=== PATIENT | female | born 1965 | race Hispanic/Latino ===

== ENCOUNTER 2018-02-16 21:40 | Emergency (ER) | payer MEDICAID, MEDICARE ==
[2018-02-16] MEDS ORDERED: Cephalexin 250 MG CAP ONE (22:49)
[2018-02-16] MEDS ORDERED: diphenhydrAMINE 50 MG CAP ONE ×2 (22:49→22:51)
== END 2018-02-16 23:28 | disposition home or self-care (01) ==
LOC: ERS 21:40
DX: L03.116 Cellulitis of left lower limb (principal); L29.9 Pruritus, unspecified; I10 Essential (primary) hypertension; E11.9 Type 2 diabetes mellitus without complications; E78.5 Hyperlipidemia, unspecified; F32.9 Major depressive disorder, single episode, unspecified; F41.9 Anxiety disorder, unspecified
CPT/HCPCS: 99283

== ENCOUNTER 2018-02-27 09:30 | Emergency (ER) | payer MEDICARE ==
[2018-02-27 10:27] LABS: #Basophils 0.1 thou/uL (0.0-0.2); #Eosinphils 0.6 thou/uL (0.0-0.7); #Lymphocytes 1.2 thou/uL (1.20-3.40); #Monocytes 0.4 thou/uL (0.11-0.59); #Neutrophils 4.9 thou/uL (1.40-6.50); %Eosinophils 8.1 % (0.0-10.0); %Lymphocytes 16.3 % (21.0-51.0); %Monocytes 5.4 % (0.0-10.0); %Neutrophils 69.1 % (42.0-75.0); Hemoglobin 12.6 g/dL (12.0-16.0); Mean Corpuscular HGB CONC 33.2 g/dL (32.0-36.0); Mean Corpuscular Hemoglobin 28.6 pg (27.0-31.0); Mean Corpuscular Volume 86.3 fl (81.0-99.0); Mean Platelet Volume 8.9 fL (7.4-10.4); Platelet Count 315 thou/uL (130-400); RBC Distribution Width 12.1 % (11.5-14.5); White Blood Cell (WBC) Count 7.1 thou/uL (4.8-10.8)
[2018-02-27 10:43] LABS: ALT (SGPT) 15 U/L (8-55); AST (SGOT) 19 U/L (5-34); Albumin 3.8 g/dL (3.5-5.0); Alkaline Phosphatase 92 U/L (40-150); Anion Gap 14 mmol/L (10-20); BUN (Urea Nitrogen) 15 mg/dL (9.8-20.1); Bilirubin, Total 0.4 mg/dL (0.2-1.2); Calc. Creatinine Clearance 0 mL/min (70-130); Calcium 9.9 mg/dL (7.8-10.44); Carbon Dioxide 21 mmol/L (22-29); Chloride 98 mmol/L (98-107); Estimated GFR-MDRD 48; Glucose 522 mg/dL (70-105); Lipase 29 U/L (8-78); Potassium 5.1 mmol/L (3.5-5.1); Protein, Total 7.8 g/dL (6.0-8.3); Sodium 128 mmol/L (136-145)
[2018-02-27 10:48] LABS: CKMB 0.6 ng/mL (0-6.6); Troponin I Less than 0.010 ng/mL (< 0.028)
[2018-02-27] MEDS ORDERED: Haloperidol Lactate 5 MG/ML VIAL ONE (10:48)
--- NOTE | 2018-02-27 11:46 | CT ---
CT ABDOMEN AND PELVIS WITH CONTRAST: Date: 02/27/18 COMPARISON: 12/01/16. HISTORY: Nausea, vomiting, and diarrhea that began 3 days ago. Gastroparesis symptoms. TECHNIQUE: Multiple contiguous axial images were obtained in a CT of the abdomen and pelvis with contrast. Coron al reformats were performed. FINDINGS: There are multiple hypodense cysts in the kidneys measuring up to 5.4 cm in size. No solid renal mass is identified. The liver, gallbladder, adrenal glands, spleen, and pancreas are unremarkable. No teagan e air, free fluid, or stranding changes are seen in the abdomen or pelvis. The patient is status post hysterectomy. The large and small bowel are unremarkable. The appendix is normal. No abdominal or pelvic lymphadenopathy seen. Degenerative changes are seen in the spine. There is a prominent left axillary lymph node measuring 1 .7 cm in size on the uppermost image and is only partially visualized. IMPRESSION: 1. Polycystic kidney disease. 2. No evidence of acute intra-abdominal/pelvic abnormality. 3. Slightly prominent left axillary lymph node is only partially visualized. Correlate with physical examination. POS: [facility]
[2018-02-27 12:19] LABS: Bilirubin Negative (Negative); Blood, Urine Negative (Negative); Clarity CLEAR (Clear); Glucose, Urine (Dipstick) >=1000 mg/dL (Negative); Leukocyte Moderate (Negative); Nitrite Negative (Negative); Protein, Urine (Dipstick) Negative (Neg-Trace); Specific Gravity, Urine 1.037 (1.002-1.036); Urobilinogen 0.2 mg/dL (0.2-1.0); pH, Urine 7.5 (5.0-9.0)
[2018-02-27] MEDS ORDERED: Insulin Regular 300 UNITS/3 ML VIAL ONE (12:20)
[2018-02-27] MEDS ORDERED: Promethazine HCl 25 MG/ML VIAL ONE (12:20)
[2018-02-27 12:21] LABS: Bacteria/HPF None Seen HPF (None Seen); Hyaline Casts/LPF 0-3 HYALINE CAST LPF (0-3 Hyaline); Pathc Cast-AUWi Flag 0.29 (0-2.49); RBC/HPF 0-3 HPF (0-3); Squamous Epithelial 0-3 HPF (0-3)
[2018-02-27] MEDS ORDERED: ISOVUE-370 76%-LOCM 1 ML ONE (16:23)
== END 2018-02-27 14:33 | disposition home or self-care (01) ==
LOC: ERS 09:30
DX: R11.2 Nausea with vomiting, unspecified (principal); R10.13 Epigastric pain; I10 Essential (primary) hypertension; E78.5 Hyperlipidemia, unspecified; E11.9 Type 2 diabetes mellitus without complications; F41.9 Anxiety disorder, unspecified; Z79.899 Other long term (current) drug therapy
CPT/HCPCS: 74177; 80053; 81003; 81015; 82010; 82553; 83690; 84484; 85025; 87077; 87086; 93005; 96361; 96365; 96375; J1630; J1815; J2550

== ENCOUNTER 2018-05-01 11:46 | Outpatient (CLI) | payer MEDICARE | END 2018-05-01 11:47 | disposition home or self-care (01) | LOC: BICMAMMO 11:46 | PROVIDERS: ATTEND Surgery | DX: Z12.31 Encounter for screening mammogram for malignant neoplasm of breast (principal) | CPT/HCPCS: 77063; 77067 ==